=== PATIENT | male | born 1975 | race Caucasian/White ===

== ENCOUNTER → 2019-12-13 11:57 | Outpatient (BNVA) | payer SELFPAY | PROVIDERS: Visit Provider Nurse Practitioner | DX: R11.2 Nausea with vomiting, unspecified (principal); R50.9 Fever, unspecified; K52.9 Noninfective gastroenteritis and colitis, unspecified; J06.9 Acute upper respiratory infection, unspecified | CPT/HCPCS: 87804 ==

== ENCOUNTER → 2021-07-03 07:53 | Outpatient (BNVA) | payer OTHER, SELFPAY | PROVIDERS: Visit Provider Nurse Practitioner Family | DX: Z20.822 Contact with and (suspected) exposure to COVID-19 (principal) | CPT/HCPCS: 87635 ==

== ENCOUNTER 2022-06-22 11:49 | Emergency (ER) | payer SELFPAY ==
--- NOTE | 2022-06-22 12:06 | XRR_ITS ---
PROCEDURE INFORMATION: Exam: XR Right Knee Exam date and time: 06/22/2022 12:39 PM Age: 46 years old Clinical indication: Pain; Knee; Right; Additional info: Knee pain TECHNIQUE: Imaging protocol: Radiologic exam of the Right knee. Views: 3 views. COMPARISON: No relevant prior studies available. FINDINGS: Bones/joints: No fracture or other acute abnormality. Mild degenerative changes are present with small osteophytes on the medial femoral condyle and tibial plateau. There is mild medial joint space narrowing. Soft tissues: Normal. XR/XR knee RT 3V* [id number] IMPRESSION: Mild chronic degenerative disease. No acute abnormality.
[2022-06-22 12:27] VITALS: BP 148/90; PULSE 97; RESP 16; TEMP 36.6; O2SAT 96; BMI 56.2
--- NOTE | 2022-06-22 12:54 | W.ED.EXTPRO ---
HPI - Extremity Problem General: Chief complaint: Extremity Injury, Lower Stated complaint: right knee pain Time Seen by Provider: 06/22/22 12:32 History of Present Illness: 46-year-old male patient comes to the emergency room today due to right knee injury. Patient reports he twisted his knee while tying down cargo on his truck yesterday. Since then patient has had pain and discomfort to the right knee. Increased with weightbearing. Patient appears nontoxic. Patient appears in mild to no pain at rest. Associated symptoms: Reports fever(s) Review of Systems Const: Reports: fever(s) Resp: Denies: dyspnea GI: Denies: abdominal pain Musc: Reports: joint pain (Right knee) [facility] ED PFSH: Social History (Updated 07/02/21 @ 15:27 by Nilda Terrell NP) Smoking and tobacco status: never smoked Alcohol intake: never Physical Exam Const: COMMON NORMALS: alert HENMT: COMMON NORMALS: normocephalic HEAD & SCALP: normocephalic Neck/C-Spine: COMMON NORMALS: full ROM Resp: COMMON NORMALS: normal respiratory effort and clear to auscultation bilaterally AUSCULTATION: clear to auscultation bilaterally Cardio: COMMON NORMALS: regular rate RATE: regular rate Extremity: RIGHT LOWER EXTREMITY: Yes knee joint (Tenderness palpation on the medial joint line) Right knee: Yes inspection, Yes palpation and Yes ROM Neuro: SENSORIUM/ORIENTATION: Yes alert Course Vital Signs: Vital signs: Vital Signs Temperature 97.8 F 06/22/22 12:27 Pulse Rate 97 06/22/22 12:27 Respiratory Rate 16 06/22/22 12:27 Blood Pressure 148/90 06/22/22 12:27 Pulse Oximetry 96 06/22/22 12:27 Oxygen Delivery Me thod 06/22/22 12:27 MDM - Extremity (Nontraumatic) Medical Decision Making 46-year-old male patient comes in with injury to the right knee. On exam patient has tenderness to the right medial joint line. Patient has increased pain with weightbearing. Differential diagnosis includes but not limited to meniscal injury, ligament injury tear versus strain, fracture. X-ray notes no fractures but some mild medial joint space narrowing. Reviewed exam with patient recommended follow-up with orthopedics for further evaluation. Patient reports understanding of care plan and need for follow-up or return to the ER. Lab Data Radiology Impressions Knee X-Ray 06/22/22 12:06 IMPRESSION: Mild chronic degenerative disease. No acute abnormality. Discharge Plan Discharge Patient Disposition: Home Clinical Impression: Acute internal derangement of knee Qualifiers: Laterality: right Qualified Code(s): M23.91 - Unspecified internal derangement of right knee Condition: Stable Prescriptions: New hydrocodone-acetaminophen 5-325 mg tablet 1 tab PO Q6H PRN (Reason: pain) Qty: 10 0RF ibuprofen 800 mg tablet 800 mg PO Q8H PRN (Reason: pain) Qty: 30 0RF Discharge Orders: Discharge ED (Routine); Ordered 06/22/22 Ordered By: Timothy Mark Discharge Diet: Usual diet Discharge Activity: Increase activity as tolerated Patient Instructions: Knee Pain (ED), Opioid Safety Activity Restrictions/Additional Instructions: Activity as tolerated. Use acetaminophen and ibuprofen as directed for pain control. Use hydrocodone for severe pain. Drink plenty of water with medications. Case management will contact you regarding follow-up appointment with orthopedics office. Return to ER for new concerns. 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
--- NOTE | 2022-06-23 16:16 | DCPLANNER ---
Addendum entered by Sylwia Hebert 07/06/22 12:53: Patient had a follow up appointment scheduled for 06.29.22 with ortho - patient did attend appointment. Addendum entered by Sylwia Hebert 06/25/22 13:00: Patient has a follow up appointment scheduled for Wednesday, June 29, [address]22 at 9:[address] Salter at ortho. Clinic will call patient with appointment information. Original Note: area plant manager had message to schedule a follow up appointment for patient with ortho. area plant manager sent patients information to the front office staff at ortho. Patients information will be printed and reviewed. Clinic will call patient with appointment information.
== END 2022-06-22 13:40 | disposition home or self-care (01) ==
PROVIDERS: Emergency Provider Nurse Practitioner Family
DX: M23.91 Unspecified internal derangement of right knee (principal)
CPT/HCPCS: 73562; 99283

== ENCOUNTER → 2023-01-25 16:02 | Outpatient (BNVA) | payer SELFPAY | PROVIDERS: Visit Provider Dermatology | DX: Z01.89 Encounter for other specified special examinations (principal); K52.9 Noninfective gastroenteritis and colitis, unspecified ==

== ENCOUNTER → 2025-02-25 10:44 | Outpatient (BNVA) | payer SELFPAY | PROVIDERS: PCP Registered Nurse; Visit Provider Registered Nurse | DX: Z00.00 Encounter for general adult medical examination without abnormal findings (principal); E55.9 Vitamin D deficiency, unspecified; I10 Essential (primary) hypertension; E03.9 Hypothyroidism, unspecified; E78.5 Hyperlipidemia, unspecified | CPT/HCPCS: 80053; 80061; 82306; 84443; 85025 ==

== ENCOUNTER → 2025-05-24 11:11 | Outpatient (BNVA) | payer SELFPAY | PROVIDERS: PCP Registered Nurse; Visit Provider Registered Nurse | DX: E03.9 Hypothyroidism, unspecified (principal) | CPT/HCPCS: 84443 ==